=== PATIENT | male | born 1960 | race Caucasian/White ===

== ENCOUNTER 2018-06-02 13:30 | Emergency (ER) | payer MEDICARE ==
[~2018-06-02] VITALS: Ht 182.9 cm; Wt 99.8 kg
[2018-06-02] MEDS ORDERED: ALBUTEROL/IPRATROPIUM 3 ML NEB NEB ONE (14:15)
[2018-06-02] MEDS ORDERED: PREDNISONE 20 MG TAB PO ONE (14:15)
--- NOTE | 2018-06-02 15:59 | Diagnostic Imaging Report ---
Examination: CT BRAIN WITHOUT CONTRAST History:Dizziness; vertigo. Comparison studies:None Technique: Axial images were obtained from the skull base to the vertex. Coronal and sagittal images reconstructed from the axial data. Dose modulation, iterative reconstruction, and/or weight based adjustment of the mA/kV was utilized to reduce the radiation dose to as low as reasonably achievable. Intravenous contrast: None Findings: Scalp: No abnormalities. Bones: No fractures, blastic or lytic lesions. Brain sulci: Appropriate for age. Ventricles: Normal in size and configuration. No hydrocephalus. Extra-axial space: No abnormalities. Parenchyma: A chronic lacunar infarct is demonstrated in the left caudate head.. No masses, hemorrhage, or acute or chronic cortical based vascular insults.. Sellar/suprasellar region: No abnormalities. Craniocervical junction: Patent foramen magnum. No Chiari one malformation. Incidental findings: None. Impression: 1. No acute intracranial abnormalities. 2. Chronic lacunar infarct in the left caudate head. Signed by: Dr. Eli Slater M.D. on 06/02/2018 3:56 PM
--- NOTE | 2018-06-02 16:02 | Diagnostic Imaging Report ---
EXAMINATION: CHEST 2 VIEWS INDICATION: ^cough, wheezing ^[id number] ^[id number] COMPARISON: None FINDINGS: PA and lateral views TUBES and LINES: None. LUNGS: Lungs are well inflated. Mild left basilar opacities with obscuration of the costophrenic angle. Central peribronchovascular thickening/cuffing. PLEURA: No significant pleural effusion or pneumothorax. HEART AND MEDIASTINUM: The cardiomediastinal silhouette is unremarkable. BONES AND SOFT TISSUES: No acute osseous lesion. Soft tissues are unremarkable. UPPER ABDOMEN: No free air under the diaphragm. IMPRESSION: Mild left basilar opacities with obscuration of the costophrenic angle, could represent atelectasis or small effusion, although underlying infiltrate cannot entirely excluded. Central peribronchovascular thickening/cuffing. Signed by: Dr. Kevin Aranda MD on 06/02/2018 3:58 PM
== END 2018-06-02 19:30 | disposition home or self-care (01) ==
LOC: ER 13:30
DX: H93.12 Tinnitus, left ear (principal); J44.9 Chronic obstructive pulmonary disease, unspecified; F41.9 Anxiety disorder, unspecified; F32.9 Major depressive disorder, single episode, unspecified; F17.210 Nicotine dependence, cigarettes, uncomplicated
CPT/HCPCS: 70450; 71046; 94640; 99284; J7512

== ENCOUNTER 2024-04-13 23:20 | Emergency (ER) | payer MEDICARE ==
[~2024-04-13] VITALS: Ht 182.9 cm; Wt 99.8 kg
[2024-04-13 23:28] VITALS: PULSE 94; RESP 18; TEMP 98.6; O2SAT 97
[2024-04-13] MEDS: LIDOCAINE HCL 1% LOCAL INJ 20 ML VIAL INJ STA (23:32)
[2024-04-13] MEDS: TETANUS/DIPHTHERIA TOX ADULT 0.5 ML SYR IM STA (23:34)
[2024-04-13] MEDS ORDERED: TETANUS/DIPHTHERIA TOX ADULT 0.5 ML SYR ONE (23:34)
[2024-04-13] MEDS ORDERED: ULTRAM 50MG50 MG PO (23:45)
[2024-04-13] MEDS ORDERED: CEPHALEXIN500 MG PO (23:45)
== END 2024-04-13 23:51 | disposition home or self-care (01) ==
LOC: ER 23:25
DX: S91.114A Laceration without foreign body of right lesser toe(s) without damage to nail, initial encounter (principal); W26.0XXA Contact with knife, initial encounter; Y92.89 Other specified places as the place of occurrence of the external cause; J44.9 Chronic obstructive pulmonary disease, unspecified; F41.9 Anxiety disorder, unspecified; F32.A Depression, unspecified
CPT/HCPCS: 12001; 90471; 90714; 99283; J2003

== ENCOUNTER 2024-09-21 11:58 | Emergency (ER) | payer MEDICARE ==
[~2024-09-21] VITALS: Ht 182.9 cm; Wt 111.1 kg
[~2024-09-21 11:58] MED LIST: CEPHALEXIN500 MG PO; ULTRAM 50MG50 MG PO
[2024-09-21 13:45] LABS: BASOPHILS % 0.3 % (0.0-1.0); EOSINOPHILS % 0.3 % (0.0-6.0); HEMATOCRIT 46.5 % (38.2-49.6); HEMOGLOBIN 15.4 g/dL (14.0-18.0); LYMPHOCYTES # (AUTO) 1.1 (1.0-3.2); LYMPHOCYTES % 9.3 % (18.0-39.1); MEAN CORPUSCULAR HEMOGLOBIN 29.4 pg (28-32); MEAN CORPUSCULAR HGB CONC 33.1 g/dL (31-35); MEAN CORPUSCULAR VOLUME 88.9 fL (81-99); MONOCYTES # (AUTO) 1.3 (0.2-0.8); MONOCYTES % 10.5 % (4.4-11.3); NEUTROPHILS # (AUTO) 9.5 (2.1-6.9); NEUTROPHILS % 78.9 % (38.7-80.0); PLATELET COUNT 204 x10e3/uL (140-360); RED BLOOD COUNT 5.23 x10e6/uL (4.3-5.7); RED CELL DISTRIBUTION WIDTH 13.8 % (11.7-14.4); WHITE BLOOD COUNT 11.98 x10e3/uL (4.8-10.8)
[2024-09-21 14:06] LABS: ALBUMIN 3.4 g/dL (3.5-5.0); ALBUMIN/GLOBULIN RATIO 0.9 (0.8-2.0); ANION GAP 17.3 mmol/L (8-16); BILIRUBIN,TOTAL 0.8 mg/dL (0.2-1.2); CALCIUM 9.4 mg/dL (8.4-10.2); CORONAVIRUS COVID-19 AG NEGATIVE (NEGATIVE); CREATININE, SERUM 1.56 mg/dL (0.72-1.25); INFLUENZA A AG NEGATIVE (NEGATIVE); INFLUENZA B AG NEGATIVE (NEGATIVE); POTASSIUM 4.3 mmol/L (3.5-5.1); TOTAL PROTEIN 7.3 g/dL (6.5-8.1)
[2024-09-21 14:12] LABS: TROPONIN I 0.034 ng/mL (0-0.300)
[2024-09-21] MEDS ORDERED: NAPROXEN250 MG PO (14:59)
[2024-09-21 15:15] VITALS: PULSE 90; RESP 16; TEMP 98.6; O2SAT 96
== END 2024-09-21 15:25 | disposition home or self-care (01) ==
LOC: ER 12:55
DX: R06.02 Shortness of breath (principal); J06.9 Acute upper respiratory infection, unspecified; I10 Essential (primary) hypertension; J44.9 Chronic obstructive pulmonary disease, unspecified; J45.909 Unspecified asthma, uncomplicated; F41.9 Anxiety disorder, unspecified; F32.A Depression, unspecified; Z96.643 Presence of artificial hip joint, bilateral
CPT/HCPCS: 36415; 71046; 80053; 83880; 84484; 85025; 93005; 99284